=== PATIENT | male | born 1980 | race Caucasian/White ===

== ENCOUNTER 2018-09-30 13:21 | Emergency (ER) | payer SELFPAY ==
--- NOTE | 2018-09-30 13:40 | NUR ---
CALLED AT THE [facility] 2X NO ANSWER, [facility]BS
== END 2018-09-30 13:40 | disposition left against medical advice (07) ==
LOC: MED 13:21
DX: Z53.21 Procedure and treatment not carried out due to patient leaving prior to being seen by health care provider (principal)